=== PATIENT | female | born 1965 | race African-American/Black ===

== ENCOUNTER 2017-07-21 09:37 | Emergency (ER) | payer MEDICAID, OTHER ==
[~2017-07-21] VITALS: Ht 154.9 cm; Wt 100.0 kg
[~2017-07-21 09:37] MED LIST: AMLO10TA4
[2017-07-21] MEDS ORDERED: IPRATROPIUM BROMIDE (0.02%) 0.5MG/2.5ML NEB HHN STA ×2 (10:05→11:43)
[2017-07-21] MEDS ORDERED: ALBUTEROL (0.083%) 2.5MG/3ML NEB HHN STA ×2 (10:05→11:43)
[2017-07-21] MEDS ORDERED: METHYLPREDNISOLONE SOD SUCC 125 MG/2 ML VIAL IV STA (10:05)
[2017-07-21 13:42] VITALS: BP 148/72
== END 2017-07-21 13:46 | disposition home or self-care (01) ==
LOC: ER 09:59
DX: R05 Cough (principal); R06.2 Wheezing; J02.9 Acute pharyngitis, unspecified; I10 Essential (primary) hypertension; J45.909 Unspecified asthma, uncomplicated
CPT/HCPCS: 71010; 81025; 94640; 94664; 96374; 99284; J2930; J7611; Z7610

== ENCOUNTER 2019-06-18 16:28 | Emergency (ER) | payer MEDICAID, OTHER ==
[~2019-06-18] VITALS: Ht 154.9 cm; Wt 100.0 kg
[2019-06-18] MEDS: SODIUM CHLORIDE 0.9% 1,000 ML IV ONE (19:03)
[2019-06-18] MEDS: ONDANSETRON HCL 4MG/2ML INJ IV STA (19:03)
[2019-06-18 19:11] LABS: BASOPHILS % 1.1 % (0.0-2.0); EOSINOPHILS % 2.8 % (0.0-5.0); HEMATOCRIT. 37.3 % (36.0-48.0); HEMOGLOBIN. 12.2 g/dL (12.0-16.0); LYMPHOCYTES % 48.5 % (20.0-50.0); MEAN CORPUSCULAR HEMOGLOBIN 27.6 pg (28.0-32.0); MEAN CORPUSCULAR VOLUME 84.7 fL (81.0-99.0); MEAN PLATELET VOLUME 9.5 fl (7.4-10.4); MONOCYTES % 7.5 % (2.0-8.0); NEUTROPHILS % 40.1 % (40.0-76.0); PLATELET 307 x1000/uL (130-400); RED CELL DISTRIBUTION WIDTH 14.8 % (11.6-14.6)
[2019-06-18 19:13] LABS: CHLORIDE 108 mEq/L (98-107)
[2019-06-18 19:37] LABS: INR 0.9; PARTIAL THROMBOPLASTIN TIME 26.1 sec (23.4-31.0); PROTHROMBIN TIME 9.8 sec (9.6-11.0)
[2019-06-18 20:00] VITALS: BP 141/82
== END 2019-06-18 20:04 | disposition home or self-care (01) ==
LOC: ER 16:28
DX: R07.89 Other chest pain (principal); R42 Dizziness and giddiness; J45.909 Unspecified asthma, uncomplicated; I10 Essential (primary) hypertension; F17.200 Nicotine dependence, unspecified, uncomplicated; R53.1 Weakness; H53.8 Other visual disturbances
CPT/HCPCS: 36415; 70450; 71045; 80053; 83880; 84484; 85025; 85610; 85730; 93005; 96361; 96374; 99284; J2405; J7030

== ENCOUNTER 2020-05-25 11:15 | Emergency (ER) | payer MEDICAID ==
[~2020-05-25] VITALS: Ht 157.5 cm; Wt 96.3 kg
[2020-05-25] MEDS ORDERED: METHYLPREDNISOLONE SOD SUCC 125 MG/2 ML VIAL IV STA (11:56)
[2020-05-25] MEDS ORDERED: ASPIRIN 81MG TABLET PO ONE (12:00)
[2020-05-25] MEDS ORDERED: NITROGLYCERIN 0.4MG TABLET SL SL PRN (12:00)
[2020-05-25] MEDS ORDERED: ALBUTEROL 6.7GM HFA INHALER ORI ONE ×3 (12:00)
[2020-05-25 12:47] LABS: EOSINOPHILS % 5.6 % (0.0-5.0); HEMOGLOBIN. 13.9 g/dL (12.0-16.0); MEAN CORPUSCULAR HEMOGLOBIN 28.2 pg (28.0-32.0); MEAN CORPUSCULAR VOLUME 85.1 fL (81.0-99.0); MONOCYTES % 6.8 % (2.0-8.0); NEUTROPHILS % 40.6 % (40.0-76.0); PLATELET 334 x1000/uL (130-400); RED BLOOD CELL COUNT 4.94 mill/uL (4.2-5.4); RED CELL DISTRIBUTION WIDTH 14.8 % (11.6-14.6)
[2020-05-25 12:53] LABS: CHLORIDE 108 mEq/L (98-107)
[2020-05-25 17:07] LABS: CHLORIDE 106 mEq/L (98-107)
[2020-05-25 17:30] VITALS: BP 158/86
== END 2020-05-25 17:48 | disposition home or self-care (01) ==
LOC: ER 11:15
DX: Z03.818 Encounter for observation for suspected exposure to other biological agents ruled out (principal); J45.901 Unspecified asthma with (acute) exacerbation; I10 Essential (primary) hypertension; E78.00 Pure hypercholesterolemia, unspecified; F17.210 Nicotine dependence, cigarettes, uncomplicated
CPT/HCPCS: 36415; 71045; 80053; 81025; 83880; 84484; 85025; 87635; 93005; 94640; 96374; 99285; C9803; J2930; Z7610